=== PATIENT | female | born 1975 | race Caucasian/White ===

== ENCOUNTER 2019-05-27 15:24 | Emergency (ER) | payer OTHER ==
[~2019-05-27] VITALS: Ht 190.5 cm; Wt 54.4 kg
[2019-05-27 15:43] VITALS: BP 132/92
--- NOTE | 2019-05-27 16:00 | NUR ---
43F C/O CAT BITE YESTERDAY. CAT DID NOT GET ANY VACCINES. 11/15 PAIN. SMALL BITE MADRIGAL TO LEFT AND RIGHT FINGERS, NO SIGNS OF INFECTION. NO FEVER. HX: NONE
--- NOTE | 2019-05-27 16:04 | NUR ---
SANJUANA MCBRIDE AT BEDSIDE.
[2019-05-27 16:47] VITALS: BP 125/82
--- NOTE | 2019-05-27 16:47 | NUR ---
Patient discharged with v/s stable. Written and verbal after care instructions given and explained. Patient alert, oriented and verbalized understanding of instructions. Ambulatory with steady gait. All questions addressed prior to discharge. ID band removed. Patient advised to follow up with PMD. Rx of BACITRACIN, IBUPROFEN, AUGMENTIN given. Patient educated on indication of medication including possible reaction and side effects. Opportunity to ask questions provided and answered.
== END 2019-05-27 16:47 | disposition home or self-care (01) ==
LOC: MED 15:24
DX: S61.251A Open bite of left index finger without damage to nail, initial encounter (principal); S61.250A Open bite of right index finger without damage to nail, initial encounter; W55.01XA Bitten by cat, initial encounter; Y93.89 Activity, other specified; Y92.89 Other specified places as the place of occurrence of the external cause; Y99.8 Other external cause status
CPT/HCPCS: 90471; 90715; 99283